=== PATIENT | female | born 1955 | race Caucasian/White ===

== ENCOUNTER 2016-09-02 16:37 | Observation (INO) ==
[2016-09-02] MEDS ORDERED: Nitroglycerin 0.4 MG TAB.SUBL SL ONE (16:52)
[2016-09-02] MEDS ORDERED: Aspirin 81 MG TAB.CHEW PO ONE (16:52)
--- NOTE | 2016-09-02 16:54 | Emergency Department Note ---
Disposition Clinical Impression: Atypical chest pain Disposition: Admitted As Inpatient Condition: Fair Referrals: Maureen Mathias MD [Primary Care Provider] - Forms: ED Satisfaction Letter Chest Pain HPI - General Chief Complaint: ED Chest Pain Stated Complaint: Chest pain Time Seen by Provider: 09/02/16 16:39 Source: patient Limitations: no limitations Vital Signs Reviewed: Yes Nursing Notes Reviewed: Yes - History of Present Illness Severity scale (1-10): 6 - Related Data Home Medications Medication Instructions Recorded Confirmed Aspirin Enteric Coated [Aspirin EC] 81 mg PO DAILY 04/07/15 09/02/16 Atenolol [Tenormin] 25 mg PO DAILY 04/07/15 09/02/16 Atorvastatin [Lipitor] 40 mg PO HS 04/07/15 09/02/16 Amlodipine Besylate [Amlodipine 10 mg PO DAILY 09/02/16 09/02/16 Besylate] Isosorbide MONOnitrate (24 HR) 60 mg PO DAILY 09/02/16 09/02/16 [Imdur] Losartan Potassium [Losartan 100 mg PO DAILY 09/02/16 09/02/16 Potassium] Ropinirole HCl [Ropinirole HCl] 0.25 mg PO DAILY PRN 09/02/16 09/02/16 SUMAtriptan Succinate [Imitrex] 100 mg PO DAILY PRN 09/02/16 09/02/16 Spironolactone [Aldactone] 50 mg PO DAILY 09/02/16 09/02/16 Allergies Allergy/AdvReac Type Severity Reaction Status Date / Time Sulfa (Sulfonamide Allergy Hives Verified 04/07/15 08:29 Antibiotics) Chest Pain PMH - Past Medical History Medical history: Reports: cancer, hypertension Surgical history: Reports: non-contributory Psychiatric history: Reports: no psych history 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 - Social History Smoking Status: Former smoker Alcohol use: Reports: none Drug use: Reports: none Physical Exam - General Limitations: no limitations General appearance: alert Course Vital Signs Temperature 97.5 F L 09/02/16 16:41 Pulse Rate 69 09/02/16 16:41 Respiratory Rate 16 09/02/16 16:41 Blood Pressure 156/92 09/02/16 16:41 O2 Sat by Pulse Oximetry 97 09/02/16 16:41 Temperature 97.5 F L 09/02/16 16:41 Pulse Rate 63 09/02/16 18:23 Respiratory Rate 14 09/02/16 18:23 Blood Pressure 133/77 09/02/16 18:23 O2 Sat by Pulse Oximetry 94 L 09/02/16 18:23 Oxygen Delivery Oxygen Delivery Room Air Chest Pain - MDM Narrative Medical decision making narrative: I examined this patient and my medical decision-making was reviewed with the COLLEGE DEAN/PA/Advanced Practice Nurse/Resident Physician. I agree with the documented findings, disposition and treatment plan as described except to the extent set forth below. Patient presents with intermittent chest pain going on for 24 hours. 2 years ago she had a catheterization which showed a 40% narrowing. She did not receive a stent. Is taking aspirin. Her cardiac risk factors are low to moderate. He rendered a cardiac workup on her she will most likely need admission. She is in agreement with this plan. I evaluated this patient Dr. Ma, I agree with his evaluation and management, supervised the care of the patient outstay. Chest X-Ray 09/02/16 16:45 IMPRESSION: No acute cardiopulmonary process. D/ / 09/02/2016 17:14:04 Lee Lorenzana MD / Rosa Gutierrez Interpreting Provider: Lee Lorenzana MD 1800 hrs.: Patient's workup is essentially negative here. With her history I think she needs to come in for a full cardiac workup. We will go ahead and bring her into the hospital. Paging the hospitalist. - Lab Data Result diagrams: 09/02/16 17:02 09/02/16 17:02 Lab Results 09/02/16 09/02/16 09/02/16 Range/Units 17:02 17:02 17:02 WBC 10.8 (4.3-11.1) K/mcL RBC 4.53 (3.82-4.97) M/mcL Hgb 13.4 (11.5-15.4) g/dL Hct 39.3 (35.3-44.9) % MCV 86.8 (83.0-100.0) fL MCH 29.6 (28.0-33.3) pg MCHC 34.1 (31.6-35.5) g/dL RDW 12.5 (11.5-14.5) % Plt Count 292 (140-400) K/mcL MPV 9.4 (9.4-12.4) fL Immature Gran % 0.5 (0-4) % Seg Neutrophils % 59.1 % Lymphocytes % 31.5 % Monocytes % 6.5 % Eosinophils % 1.9 % Basophils % 0.5 % Neutrophils # 6.4 (1.6-8.9) K/mcL Lymphocytes # 3.4 (0.6-4.6) K/mcL Monocytes # 0.7 (0.0-1.3) K/mcL Eosinophils # 0.2 (0.0-0.6) K/mcL Basophils # 0.1 (0.0-0.2) K/mcL PT 12.3 H (9.4-12.1) Seconds INR 1.1 APTT 34.5 (26.0-36.0) Seconds Sodium 141 (136-145) mEq/L Potassium 3.5 (3.5-4.5) mEq/L Chloride 109 (98-109) mEq/L Carbon Dioxide 20 (19-29) mEq/L BUN 14 (7-20) mg/dL Creatinine 0.97 (0.57-1.11) mg/dL Est GFR ( Amer) > 60 (> 60) Est GFR (Non-Af Amer) 58 L (> 60) BUN/Creatinine Ratio 14 (6-26) Glucose 101 H (70-99) mg/dL Calculated Osmolality 293 (280-300) Calcium 9.8 (8.6-10.8) mg/dL Troponin I (0-0.03) ng/mL 09/02/16 Range/Units 17:02 WBC (4.3-11.1) K/mcL RBC (3.82-4.97) M/mcL Hgb (11.5-15.4) g/dL Hct (35.3-44.9) % MCV (83.0-100.0) fL MCH (28.0-33.3) pg MCHC (31.6-35.5) g/dL RDW (11.5-14.5) % Plt Count (140-400) K/mcL MPV (9.4-12.4) fL Immature Gran % (0-4) % Seg Neutrophils % % Lymphocytes % % Monocytes % % Eosinophils % % Basophils % % Neutrophils # (1.6-8.9) K/mcL Lymphocytes # (0.6-4.6) K/mcL Monocytes # (0.0-1.3) K/mcL Eosinophils # (0.0-0.6) K/mcL Basophils # (0.0-0.2) K/mcL PT (9.4-12.1) Seconds INR APTT (26.0-36.0) Seconds Sodium (136-145) mEq/L Potassium (3.5-4.5) mEq/L Chloride (98-109) mEq/L Carbon Dioxide (19-29) mEq/L BUN (7-20) mg/dL Creatinine (0.57-1.11) mg/dL Est GFR ( Amer) (> 60) Est GFR (Non-Af Amer) (> 60) BUN/Creatinine Ratio (6-26) Glucose (70-99) mg/dL Calculated Osmolality (280-300) Calcium (8.6-10.8) mg/dL Troponin I 0.00 (0-0.03) ng/mL
--- NOTE | 2016-09-02 16:56 | Emergency Department Note ---
Disposition Clinical Impression: Atypical chest pain Chest pain Qualifiers: Chest pain type: unspecified Qualified Code(s): R07.9 - Chest pain, unspecified Disposition: Admitted As Inpatient Condition: Good Forms: ED Satisfaction Letter Time of Disposition: 18:38 Chest Pain HPI - General Chief Complaint: ED Chest Pain Stated Complaint: Chest pain Time Seen by Provider: 09/02/16 16:39 Source: patient Mode of arrival: ambulatory Limitations: no limitations Vital Signs Reviewed: Yes Nursing Notes Reviewed: Yes - History of Present Illness HPI Narrative: Patient presents emergency room with approximately 7 days with the chest pressure and pain. Symptoms are substernal in nature. She has had these one time in the past approximately 2 years ago when she was evaluated this facility admitted and had cardiac catheterization. She denies these being identical symptoms at this time. She has been following up appropriately with her paper ruler. She is concerned today because his symptoms have not gone away over the last week. She usually will have these symptoms very intermittently and they resolved completely. Patient otherwise denies shortness of breath headache vision changes nausea vomiting or diarrhea. Main complaint on presentation here today as exertional chest pressure and pain. 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 Duration: constant Onset: during rest Pain Location: substernal Severity: moderate Severity scale (1-10): 6 Quality: tightness Improves with: nothing Worsens with: exertion Treatments prior to arrival chest pain: aspirin - Related Data Home Medications Medication Instructions Recorded Confirmed Aspirin Enteric Coated [Aspirin EC] 81 mg PO DAILY 04/07/15 04/07/15 Atenolol [Tenormin] 25 mg PO DAILY 04/07/15 04/07/15 Atorvastatin [Lipitor] 40 mg PO HS 04/07/15 04/07/15 Zolpidem [Ambien] 5 mg PO HS 04/07/15 04/07/15 Previous Rx's Medication Instructions Recorded Isosorbide MONOnitrate (24 HR) 60 mg PO DAILY #30 tab.er.24h 04/07/15 [Imdur] Cephalexin [Keflex] 500 mg PO QID #40 capsule 04/09/15 Clindamycin [Cleocin] 300 mg PO Q8HR #21 capsule 04/09/15 Hydrocodone/Acetaminophen [[place] 1 tab PO QID PRN #14 tab 04/09/15 5-325 Tablet] Allergies Allergy/AdvReac Type Severity Reaction Status Date / Time Sulfa (Sulfonamide Allergy Hives Verified 04/07/15 08:29 Antibiotics) All systems ED: reviewed and negative except as stated. Constitutional: Denies: fever, chills Cardiovascular: Reports: chest pain. 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 Absent: respiratory distress, wheezes, stridor - Cardiovascular Cardiovascular exam: Present: regular rate, normal rhythm, normal heart sounds - Abdominal Exam Abdominal exam: Present: soft, Non-Tender. Absent: tenderness, distention, guarding, rebound, rigidity, mass, pulsatile mass - Extremities Exam Extremities exam: Present: normal inspection, full ROM, pedal edema - Back Exam Back exam: Present: normal inspection, full ROM. Absent: tenderness - Neurological Exam Neurological exam: Present: alert, oriented X3, CN II-XII intact, normal gait - Psychiatric Psychiatric exam: Present: normal affect, normal mood - Skin Skin exam: Present: warm, dry, intact, normal color Course Course Narrative: Patient seen and examined the time of arrival. See history of present illness. 61-year-old female presents emergency room with approximate 7 days with a substernal chest pain. Symptoms get worse when she exerts herself. She has had these symptoms on and off over the last year. She had seen her paper ruler approximately 3 months ago and it noted that with them at that time. They were continuing to manage her medically that point. She has not had a stress test or echo performed in over 2 years. Patient does know that she has a 40% blockage in one of her vessels but did not require understanding during that last catheterization. Patient denies any trauma or injuries at this time. She denies any shortness of breath headache vision changes nausea vomiting or diarrhea. Only complaint on presentation here his chest pain and exertional chest pain. Vital signs on initial triage of hypertension but otherwise are normal. She is afebrile. Physical exam well-appearing female who does appear to be slightly anxious about being here in the emergency room. Her neurologic evaluation is negative at this time. Her lungs are clear heart is regular abdomen is soft no pulsatile masses or hernias. She has no peripheral edema. She has good palpable radial DP and PT pulses. Patient based on symptom history presentation is concerning for cardiac clearance 2 issues. This is not identical to her previous cardiac presentation but it does appear to be related to exertion or physical activity. Patient had EKG chest x- ray labs including troponin drawn at this time. Patient and I discussed in detail the bedside of this was most likely going to require her to be admitted to have further evaluation by the cardiology team. She understands that at this time is comfortable with the plan. Patient stable resting comfortably in the bed workup and disposition to be completed. Aspirin and nitroglycerin trial to be started this time per patient's blood pressure should tolerate without any difficulty - Reevaluation(s) Reevaluation #1: Patient has moderate cardiac risk based on heart score being for this time. She has known coronary artery disease never needing stenting. EKG shows sinus rhythm normal morphology intervals are all within normal limits. It describes ST segment depression based on my evaluation is less than 0.5 mm of depression throughout multiple leads on EKG. No reciprocal changes or signs of acute STEMI aspirin and nitroglycerin tablets start now Time: 17:04 Reevaluation #2: Troponin is negative. Rest the patient's lab workup is negative at this time. Chest x-ray stable with no signs of infiltrate or effusion. Patient did not have relief of symptoms with nitroglycerin trial. Aspirin given at this time. Patient has symptoms that are consistent with atypical chest pain. This does not appear to be an anginal-like events. She will be brought in the hospital this time for acute coronary syndrome evaluation secondary to her exertional symptoms and previous history of coronary disease. Conversation was had with the hospitalist Dr. hermosillo. We reviewed the presentation symptoms and medical intervention performed in emergency room. No other recommendations at this time. I do not feel the patient needs a heparin drip at this time secondary to this being most likely atypical chest pain and not an acute coronary syndrome. Patient was informed of our plan and the negative workup and she is comfortable being admitted this time for further evaluation and definitive management. Vital signs been stable throughout the course of care she is in no distress resting comfortably in the bed Time: 18:38 Vital Signs Temperature 97.5 F L 09/02/16 16:41 Pulse Rate 69 09/02/16 16:41 Respiratory Rate 16 09/02/16 16:41 Blood Pressure 156/92 09/02/16 16:41 O2 Sat by Pulse Oximetry 97 09/02/16 16:41 Temperature 97.5 F L 09/02/16 16:41 Pulse Rate 69 09/02/16 16:41 Respiratory Rate 16 09/02/16 16:41 Blood Pressure 156/92 09/02/16 16:41 O2 Sat by Pulse Oximetry 97 09/02/16 16:41 Oxygen Delivery Oxygen Delivery Room Air Chest Pain - MDM Narrative Medical decision making narrative: Chest pain, rule out acute coronary syndrome - Medical Records Medical records reviewed: Yes I reviewed the patient's medical records. - Lab Data Lab results reviewed: Yes I reviewed the patient's lab results. - Radiology Data Radiology results reviewed: Yes I reviewed the patient's radiology results. Chest x-ray is negative for acute pathology reviewed by myself and confirmed by radiology - EKG Data EKG attestation: Yes I reviewed and interpreted this EKG. EKG shows normal: sinus rhythm, axis, intervals, QRS complexes, ST-T waves Rate: normal Rhythm: NSR Adams/QRS: normal When compared to previous EKG there are: no significant changes Interpretation: no acute changes, unchanged when compared to prior tracing (date ) (Patient has no acute changes from previous EKG performed on 02/23/15. Intervals are all within normal limits. EKG does note possible ST segment depression but it appears to be diffuse in nature no acute morphology noted at this point) Heart Score - Score History: Moderately Suspicious EKG: Non Specific repolarisation Disturbance Age: 45-65 Risk Factors: 1-2 risk factors Troponin: Less than normal limit HEART Score Total: 4
[2016-09-02 17:08] LABS: Basophils # 0.1 K/mcL (0.0-0.2); Basophils % 0.5 %; Eosinophils # 0.2 K/mcL (0.0-0.6); Eosinophils % 1.9 %; Hematocrit 39.3 % (35.3-44.9); Hemoglobin 13.4 g/dL (11.5-15.4); Immature Granulocytes % 0.5 % (0-4); Lymphocytes # 3.4 K/mcL (0.6-4.6); Lymphocytes % 31.5 %; Mean Corpuscular HGB Conc 34.1 g/dL (31.6-35.5); Mean Corpuscular Hemoglobin 29.6 pg (28.0-33.3); Mean Corpuscular Volume 86.8 fL (83.0-100.0); Mean Platelet Volume 9.4 fL (9.4-12.4); Monocytes # 0.7 K/mcL (0.0-1.3); Monocytes % 6.5 %; Neutrophils # 6.4 K/mcL (1.6-8.9); Platelet Count 292 K/mcL (140-400); Red Blood Count 4.53 M/mcL (3.82-4.97); Red Cell Distribution Width 12.5 % (11.5-14.5); Segmented Neutrophils % 59.1 %
[2016-09-02 17:13] LABS: INR 1.1; Prothrombin Time 12.3 Seconds (9.4-12.1)
[2016-09-02 17:16] LABS: Activated Partial Thrombo Time 34.5 Seconds (26.0-36.0)
[2016-09-02 17:22] LABS: BUN/Creatinine Ratio 14 (6-26); Blood Urea Nitrogen 14 mg/dL (7-20); Calcium 9.8 mg/dL (8.6-10.8); Carbon Dioxide 20 mEq/L (19-29); Chloride 109 mEq/L (98-109); Glucose 101 mg/dL (70-99); Osmolality,Calculated 293 (280-300); Potassium 3.5 mEq/L (3.5-4.5); Sodium 141 mEq/L (136-145); eGFR For African Americans > 60 (> 60); eGFR For Non-African Americans 58 (> 60)
[2016-09-02] MEDS ORDERED: Ondansetron 4 MG/2 ML VIAL IVP PRN (19:34)
[2016-09-02] MEDS ORDERED: Acetaminophen 325 MG TABLET PO PRN (19:34)
[2016-09-02] MEDS ORDERED: Naloxone 0.4 MG/ML INJ IVP PRN (19:34)
[2016-09-02] MEDS ORDERED: *HR* Morphine 2 MG/ML SYRINGE IVP PRN (19:34)
[2016-09-02] MEDS ORDERED: *HR* HYDROcodone/Acet 5/325 mg TABLET PO PRN (19:34)
--- NOTE | 2016-09-02 19:43 | Internal Med History&Physical ---
<Alix Guajardo - Last Filed: 09/02/16 21:15> Date of Encounter: 09/02/16 Time of Encounter: 19:43 Assessment and Plan (1) Chest pain Current visit: Yes Status: Acute 1 first cardiac troponin is negative we will continue cycle troponins. We will continue with aspirin, atenolol, statin and nitroglycerin as needed oxygen 2 continuous cardiac monitoring 3 we will obtain cardiac echo 4 patient nothing by mouth and consult cardiology (2) HTN (hypertension) Current visit: Yes Status: Acute 1 presently controlled we will continue with atenolol Qualifiers: Hypertension type: essential hypertension Qualified Code(s): I10 - Essential (primary) hypertension (3) DVT prophylaxis Current visit: Yes Status: Acute 1 encourage patient to ambulate Internal Medicine - H&P: HPI Chief complaint: Chest pain Admitted From: Home Plans for Post Hospital Care: Home History of present illness: Ms. Shepherd is a 61 year old female with past medical history of coronary artery disease kidney cancer with right nephrectomy hypertension CHF. According the patient she has been experiencing midsternal dull chest pressure which is nonradiating without associated nausea. The pain is aggravated with exertion relieved with rest. She has had these symptoms off and on for over a year. 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 She had a cardiac catheter 2 years ago which did reveal moderate atherosclerotic coronary disease 40% stenosis in proximal LAD 30 % stenosis in mid circumflex and 50% stenosis in the mid RCA which is medically managed. The patient denies any shortness of breath diaphoresis lightheadedness She presented to the ER with the above complaints. Upon arrival to the patient was given nitroglycerin which did relieve her pain cardiac enzymes were obtained first troponin was negative, chest x-ray no acute process EKG with sinus rhythm with some mild wide spread ST depression she was given aspirin and nitroglycerin for chest pain which did not relieve her pain. She has been admitted for further work up evaluation. Presently patient is chest pain-free she denies any shortness of breath she is hemodynamically stable. I reviewed this case with Dr Peña who agrees with plan . Past Med Surg Social Fam HX - Past Medical History Medical history: cancer, hypertension Psychiatric history: no psych history - Past Surgical History Surgical History: non-contributory - Social History Smoking Status: Former smoker Smokeless Tobacco Status: No Alcohol use: none Drug use: none Internal Medicine - H&P: Meds Aspirin Enteric Coated [Aspirin EC] 81 mg PO DAILY 04/07/15 [History] Atenolol [Tenormin] 25 mg PO DAILY 04/07/15 [History] Atorvastatin [Lipitor] 40 mg PO HS 04/07/15 [History] Amlodipine Besylate [Amlodipine Besylate] 10 mg PO DAILY 09/02/16 [History] Isosorbide MONOnitrate (24 HR) [Imdur] 60 mg PO DAILY 09/02/16 [History] Losartan Potassium [Losartan Potassium] 100 mg PO DAILY 09/02/16 [History] Ropinirole HCl [Ropinirole HCl] 0.25 mg PO DAILY PRN 09/02/16 [History] SUMAtriptan Succinate [Imitrex] 100 mg PO DAILY PRN 09/02/16 [History] Spironolactone [Aldactone] 50 mg PO DAILY 09/02/16 [History] Allergies Sulfa (Sulfonamide Antibiotics) Allergy (Verified 04/07/15 08:29) Hives All Systems PM: A 10-system review of systems was performed and is negative for pertinent findings except as documented above in the HPI. - Constitutional Constitutional: no chills, no fever(s), no night sweats - Cardiovascular Cardiovascular ROS IM: chest pain - Respiratory Respiratory: no cough, no dyspnea, no wheezing, no excessive phlegm production - Gastrointestinal Gastrointestinal: no abdominal pain, no diarrhea, no hematemesis, no hematochezia, no melena, no nausea, no vomiting - Genitourinary Genitourinary: no change in urinary stream, no dysuria, no flank pain, no hematuria - Musculoskeletal Musculoskeletal ROS IM: no numbness, no tingling - Integumentary Integumentary IM: no rash, no unusual bruising - Neurological Neurological ROS: no confusion, no convulsions, no focal weakness, no numbness, no tingling, no tremor(s) - Hematologic/Lymphatic Hematologic/Lymphatic: no easy bruising - Constitutional Vitals: Temp Pulse Resp BP Pulse Ox 97.5 F L 63 16 139/79 94 L 09/02/16 16:41 09/02/16 18:23 09/02/16 18:54 09/02/16 18:54 09/02/16 18:23 General appearance: Present: A&O X 3, answers questions appropriately - Head Head exam: Present: atraumatic, normocephalic - Eye Eye exam: Present: PERRL, conjuntiva pink, sclera anicteric Pupils: Present: PERRL - Neck Neck exam general surgery: Present: supple, trachea midline. Absent: lymphadenopathy - Respiratory Respiratory exam: Present: CTAB. Absent: accessory muscle use, rales, rhonchi, wheezes - Cardiovascular Cardiovascular exam: Present: RRR, +S1, +S2. Absent: diastolic murmur, gallop, rubs, systolic murmur - GI/Abdominal GI/Abdominal exam: Present: normal bowel sounds, soft, no peritoneal signs. Absent: distended, tenderness - Extremities Exam Extremities exam: Present: warm, radial pulses palpable and symetrical. Absent : calf tenderness, cyanotic, pedal edema - Neurological Exam Neurological exam: Present: CN II-XII intact, oriented X3, no focal deficits. Absent: pronater drift, facial droop, speech deficit - Skin Skin exam: Present: dry, intact Internal Med - H&P Results - Labs CBC & Chem 7: 09/02/16 17:02 09/02/16 17:02 - EKG Data EKG shows normal: sinus rhythm Rate: normal - Diagnostic Studies Chest x-ray Additional comments: per radiology no acute changes - VTE Reasons for not Prescribing Prophylaxis: Treatment not Indicated - Low risk for VTE <Ruth Peña - Last Filed: 09/02/16 23:15> Date of Encounter: 09/02/16 Internal Medicine - H&P: HPI History of present illness: Ms. Shepherd is a 61 year old female All Systems PM: A 10-system review of systems was performed and is negative for pertinent findings except as documented above in the HPI. - Constitutional Vitals: Temp Pulse Resp BP Pulse Ox 97.8 F 62 18 131/78 93 L 09/02/16 20:21 09/02/16 20:21 09/02/16 20:21 09/02/16 20:21 09/02/16 20:21 Internal Med - H&P Results - Labs CBC & Chem 7: 09/02/16 17:02 09/02/16 17:02 Labs: Cardiac Enzymes 09/02/16 Range/Units 22:19 Troponin I 0.00 (0-0.03) ng/mL - Attending Attestation I examined this patient and my medical decision-making was reviewed with the MORTICIAN HELPER/PA/Advanced Practice Nurse/Resident Physician. I agree with the documented findings, disposition and treatment plan as described except to the extent set forth below. I have personally evaluated the pt and discussed the details with DATA ACQUISITION TECHNICIAN. H/O CAD and prior cardiac cath. presents with CP - Troponin negative. stress test versus cardiac cath. cardiology consult.
[2016-09-02] MEDS ORDERED: Nitroglycerin 0.4 MG TAB.SUBL SL PRN (19:45)
[2016-09-03 04:53] LABS: Basophils # 0.1 K/mcL (0.0-0.2); Basophils % 0.6 %; Eosinophils # 0.2 K/mcL (0.0-0.6); Eosinophils % 2.6 %; Hematocrit 39.9 % (35.3-44.9); Hemoglobin 13.7 g/dL (11.5-15.4); Immature Granulocytes % 0.2 % (0-4); Lymphocytes # 3.3 K/mcL (0.6-4.6); Lymphocytes % 37.6 %; Mean Corpuscular HGB Conc 34.3 g/dL (31.6-35.5); Mean Corpuscular Volume 87.5 fL (83.0-100.0); Mean Platelet Volume 9.7 fL (9.4-12.4); Monocytes # 0.8 K/mcL (0.0-1.3); Monocytes % 8.7 %; Neutrophils # 4.5 K/mcL (1.6-8.9); Platelet Count 276 K/mcL (140-400); Red Blood Count 4.56 M/mcL (3.82-4.97); Red Cell Distribution Width 12.5 % (11.5-14.5); Segmented Neutrophils % 50.3 %
[2016-09-03 05:11] LABS: BUN/Creatinine Ratio 17 (6-26); Blood Urea Nitrogen 14 mg/dL (7-20); Calcium 9.4 mg/dL (8.6-10.8); Carbon Dioxide 20 mEq/L (19-29); Chloride 110 mEq/L (98-109); Chol/HDL Ratio 3.9 (0-4.9); Cholesterol 143 mg/dL (< 200); Glucose 94 mg/dL (70-99); HDL Cholesterol 37 mg/dL (40-59); LDL Cholesterol,Calculated 78 mg/dL (0-99); Osmolality,Calculated 292 (280-300); Potassium 3.5 mEq/L (3.5-4.5); Sodium 141 mEq/L (136-145); Triglycerides 139 mg/dL (< 150); eGFR For African Americans > 60 (> 60); eGFR For Non-African Americans > 60 (> 60)
[2016-09-03] MEDS ORDERED: Aspirin Enteric Coated 81 MG Tablet PO SCH (09:00)
[2016-09-03] MEDS ORDERED: Isosorbide MONOnitrate (24 HR) 60 MG TAB.ER.24H PO SCH ×2 (09:00→12:33)
[2016-09-03] MEDS ORDERED: amLODIPine 5 MG TABLET PO SCH (09:00)
--- NOTE | 2016-09-03 09:15 | Cardiology Consult Note ---
Date of Encounter: 09/03/16 Time of Encounter: 09:15 Assessment and Plan (1) Chest pain Current Visit: Yes Status: Acute Known moderate CAD on [facility] 03/2015. 40% prox LAD, 50% distal LAD (tortuous), 30% mid circ, 50% 1st marginal, 50% mid RCA. Echo 11/2015 EF 60%. Current symptoms concerning for worsening coronary disease. Chest pain for the past week--reports nearly constant, but waxing and waning in intensity. Reports midsternal pain worse on exertion, relieved with rest and with nitro in ED yesterday. Troponins negative x 2. Nonspecific EKG changes noted. Order low level stress test for further ischemic evaluation. Further recommendations following stress test results. Qualifiers: Chest pain type: unspecified Qualified Code(s): R07.9 - Chest pain, unspecified (2) CAD (coronary artery disease) Current Visit: Yes Status: Acute Continue ASA, Statin, BB, nitrates. Qualifiers: Coronary Disease-Associated Artery/Lesion type: [place] artery [place] vs. transplanted heart: [place] heart Associated angina: with stable angina Qualified Code(s): I25.118 - Atherosclerotic heart disease of [place] coronary artery with other forms of angina pectoris (3) HTN (hypertension) Current Visit: Yes Status: Acute Controlled on current meds. Qualifiers: Hypertension type: essential hypertension Qualified Code(s): I10 - Essential (primary) hypertension Discussion w patient/family: The assessment and plan as outlined above was discussed with the patient and/or family members who expressed understanding and agreement. All questions were answered. Thank you for involving us in the care of your patient. Please call with any questions. I will discuss all the above with Dr. Winslow and make changes as necessary. History of Present Illness Consult date: 09/03/16 Requesting physician: Ruth Peña Consult reason: Chest pain Chief complaint: Chest pain History of present illness: Ms. Shepherd is a 61 year old female with PMH of moderate CAD on [facility] in 03/2015, renal cancer s/p nephrectomy, hypertension CHF. According the patient she has been experiencing midsternal dull chest pressure which is nonradiating for the past week,worsened with exertion, relieved with rest. [facility] in 2014 revealed moderate atherosclerotic coronary disease 40% stenosis in proximal LAD 30% stenosis in mid circumflex and 50% stenosis in the mid RCA. Echo 11/2015 EF 60%, mild LVDD, mild MR. Pt reports chest pain yesterday was relieved with nitro in ED, recurred when she ambulated to bathroom. Past Med Surg Social Fam HX - Past Medical History Medical history: cancer, coronary artery disease, hypertension Psychiatric history: no psych history - Past Surgical History Surgical History: non-contributory - Social History Smoking Status: Former smoker Smokeless Tobacco Status: No Alcohol use: none Drug use: none Medications and Allergies Aspirin Enteric Coated [Aspirin EC] 81 mg PO DAILY 04/07/15 [History] Atenolol [Tenormin] 25 mg PO DAILY 04/07/15 [History] Atorvastatin [Lipitor] 40 mg PO HS 04/07/15 [History] Amlodipine Besylate [Amlodipine Besylate] 10 mg PO DAILY 09/02/16 [History] Isosorbide MONOnitrate (24 HR) [Imdur] 60 mg PO DAILY 09/02/16 [History] Losartan Potassium [Losartan Potassium] 100 mg PO DAILY 09/02/16 [History] Ropinirole HCl [Ropinirole HCl] 0.25 mg PO DAILY PRN 09/02/16 [History] SUMAtriptan Succinate [Imitrex] 100 mg PO DAILY PRN 09/02/16 [History] Spironolactone [Aldactone] 50 mg PO DAILY 09/02/16 [History] Allergies Sulfa (Sulfonamide Antibiotics) Allergy (Verified 04/07/15 08:29) Hives All Systems Review: A 10-system review of systems was performed and is negative for pertinent findings except as documented above in the HPI. - Cardiovascular Cardiovascular: as per HPI, chest pain at rest, chest pain with exertion - Gastrointestinal Gastrointestinal: nausea Physical Examination Vital Signs, Last 4 Hours Temp Pulse Resp BP Pulse Ox 09/03/16 07:00 97.5 F L 56 16 121/78 95 Vital Signs Temp Pulse Resp BP Pulse Ox 09/03/16 07:00 97.5 F L 56 16 121/78 95 09/03/16 04:07 97.9 F 57 14 124/75 96 09/02/16 23:21 97.9 F 60 14 120/80 93 L 09/02/16 20:21 97.8 F 62 18 131/78 93 L 09/02/16 18:54 16 139/79 09/02/16 18:23 63 14 133/77 94 L 09/02/16 18:03 73 16 133/77 95 09/02/16 16:41 97.5 F L 69 16 156/92 97 Intake and Output 09/02/16 09/03/16 09/03/16 23:59 07:59 15:59 Other: Meal NPO Weight 49.13 kg 49.26 kg Patient Weight 09/03/16 23:59 Weight 49.26 kg General: Conversant, No Apparent Distress HEENT: Atraumatic, Normocephaly, Mucus Membranes Moist Neck: No JVD, Normal carotid pulses Cardiac: Reg Rate and Rhythm, Normal S1 and S2, No Murmur Lungs: Normal Breath Sounds, No Wheeze, Rales, Rhonchi Neuro: Alert and responsive, No focal deficits noted Abdomen: Soft, Non-Tender Skin: No rashes noted on visualized skin Musculoskeletal: No Chest Wall Tenderness Extremities: No Clubbing, No Cyanosis, No Edema, Normal Pulses Results 09/03/16 04:25 09/03/16 04:25 Lab Results 09/02/16 09/03/16 09/03/16 22:19 04:25 04:25 WBC 8.9 Hgb 13.7 Hct 39.9 Plt Count 276 Sodium 141 Potassium 3.5 Chloride 110 H Carbon Dioxide 20 BUN 14 Creatinine 0.82 Glucose 94 Calcium 9.4 Troponin I 0.00 09/03/16 04:25 WBC Hgb Hct Plt Count Sodium Potassium Chloride Carbon Dioxide BUN Creatinine Glucose Calcium Troponin I 0.00 Short CBC 09/03/16 09/02/16 Range/Units 04:25 17:02 WBC 8.9 10.8 (4.3-11.1) K/mcL Hgb 13.7 13.4 (11.5-15.4) g/dL Hct 39.9 39.3 (35.3-44.9) % Plt Count 276 292 (140-400) K/mcL Neutrophils # 4.5 6.4 (1.6-8.9) K/mcL BMP 09/03/16 09/02/16 Range/Units 04:25 17:02 Sodium 141 141 (136-145) mEq/L Potassium 3.5 3.5 (3.5-4.5) mEq/L Chloride 110 H 109 (98-109) mEq/L Carbon Dioxide 20 20 (19-29) mEq/L BUN 14 14 (7-20) mg/dL Creatinine 0.82 0.97 (0.57-1.11) mg/dL Glucose 94 101 H (70-99) mg/dL Calcium 9.4 9.8 (8.6-10.8) mg/dL Cardiac Enzymes 09/03/16 09/02/16 09/02/16 Range/Units 04:25 22:19 17:02 Troponin I 0.00 0.00 0.00 (0-0.03) ng/mL Impressions Chest X-Ray 09/02/16 16:45 IMPRESSION: No acute cardiopulmonary process. D/ / 09/02/2016 17:14:04 Lee Lorenzana MD / Rosa Gutierrez Interpreting Provider: Lee Lorenzana MD Active Medications Acetaminophen (Tylenol) 650 mg PO Q6HR PRN PRN Reason: Mild Pain (1-3) Stop: 03/04/17 19:35 Acetaminophen/Hydrocodone Bitart ([place] 5-325 Mg) 1 tab PO Q4HR PRN PRN Reason: Moderate Pain (4-6) Stop: 03/04/17 19:35 Amlodipine Besylate (Norvasc) 10 mg PO DAILY [facility] Stop: 03/05/17 09:01 Aspirin (Aspirin Ec) 81 mg PO DAILY [facility] Stop: 03/05/17 09:01 Atenolol (Tenormin) 25 mg PO DAILY [facility] Stop: 03/05/17 09:01 Atorvastatin Calcium (Lipitor) 40 mg PO DAILY [facility] Stop: 03/04/17 21:01 Isosorbide Mononitrate (Imdur) 60 mg PO DAILY [facility] Stop: 03/05/17 09:01 Losartan Potassium (Cozaar) 100 mg PO DAILY [facility] Stop: 03/05/17 09:01 Morphine Sulfate (Morphine Sulfate) 2 mg IVP Q4HR PRN PRN Reason: Severe Pain (7-10) Stop: 03/04/17 19:35 Naloxone HCl (Narcan) 0.4 mg IVP Q2MIN PRN PRN Reason: Opioid Reversal Stop: 03/04/17 19:35 Nitroglycerin (Nitroglycerin) 0.4 mg SL Q5MIN PRN PRN Reason: Chest Pain Stop: 03/04/17 19:46 Ondansetron HCl (Zofran) 4 mg IVP Q8HR PRN PRN Reason: Nausea And Vomiting Stop: 03/04/17 19:35 Spironolactone (Aldactone) 50 mg PO DAILY [facility] Stop: 03/05/17 09:01 Active Medications Acetaminophen (Tylenol) 650 mg PO Q6HR PRN PRN Reason: Mild Pain (1-3) Stop: 03/04/17 19:35 Acetaminophen/Hydrocodone Bitart ([place] 5-325 Mg) 1 tab PO Q4HR PRN PRN Reason: Moderate Pain (4-6) Stop: 03/04/17 19:35 Amlodipine Besylate (Norvasc) 10 mg PO DAILY [facility] Stop: 03/05/17 09:01 Aspirin (Aspirin Ec) 81 mg PO DAILY [facility] Stop: 03/05/17 09:01 Atenolol (Tenormin) 25 mg PO DAILY [facility] Stop: 03/05/17 09:01 Atorvastatin Calcium (Lipitor) 40 mg PO DAILY [facility] Stop: 03/04/17 21:01 Isosorbide Mononitrate (Imdur) 60 mg PO DAILY [facility] Stop: 03/05/17 09:01 Losartan Potassium (Cozaar) 100 mg PO DAILY [facility] Stop: 03/05/17 09:01 Morphine Sulfate (Morphine Sulfate) 2 mg IVP Q4HR PRN PRN Reason: Severe Pain (7-10) Stop: 03/04/17 19:35 Naloxone HCl (Narcan) 0.4 mg IVP Q2MIN PRN PRN Reason: Opioid Reversal Stop: 03/04/17 19:35 Nitroglycerin (Nitroglycerin) 0.4 mg SL Q5MIN PRN PRN Reason: Chest Pain Stop: 03/04/17 19:46 Ondansetron HCl (Zofran) 4 mg IVP Q8HR PRN PRN Reason: Nausea And Vomiting Stop: 03/04/17 19:35 Spironolactone (Aldactone) 50 mg PO DAILY [facility] Stop: 03/05/17 09:01 - Imaging and Cardiology Chest Xray: report reviewed Stress Test: report reviewed (02/2015--small sized, mild intensity reversible basal inferior defect suggestive of ischemia.) Echo: report reviewed (12/03/15--EF 60%, mild LVDD, mild MR.) Cardiac cath: report reviewed (03/2015--Moderate atherosclerotic CAD. EF 65%. 40 % proximal LAD, 50% distal LAD (tortuous), 30% mid circ, 50% 1st marginal, 50% mid RCA.) - EKG Interpretation EKG results cardiology: personally reviewed (SR, nonspecific ST changes), other (12 hour tele AVG HR 59, no significant pauses or arrhythmias.) Consult Discharge Plan - Plan Referrals: Maureen Mathias MD [Primary Care Provider] -
[2016-09-03] MEDS ORDERED: Regadenoson 0.4 MG/5 ML SYRINGE IVP ONE (10:48)
--- NOTE | 2016-09-03 12:30 | Nuclear Medicine Stress Report ---
Low Level Regadenoson Name: Sera Shepherd Date of Study: 09/03/2016 Date: 1955 Ht: 59.0 in Medical Record#: [id number] Age: 61 Wt: 108.0 lb Gender: Female Order #: [id number] Location: [facility] Room: [facility] Supervising Provider: Onesimo Miranda CNP Reading Physician: Wilton Rose DO, INA LEMONS FASNC Ordering Physician: Onesimo Miranda CNP Primary Care Physician: Maureen Mathias MD Stress Technologist: Frances Hendricks TALENT ACQUISITION ADMINISTRATOR, CCT Manager Nursing: August Castañeda Indications: Chest Pain Impression: Low level exercise/ pharmacologic stress ECG is negative for ischemia at level of heart rate achieved. Gated EF > 70%. Perfusion imaging was negative for ischemia or infarct. History: Hypertension Hypercholesteremia Stress Test Summary: Stress Test Type: Low level pharmacologic Regadenoson 0.4mg/5ml given IV Baseline Information: Initial Heart Rate: 56 Blood Pressure: 124/70 Stress Information: Stress Time: 4 min 00 sec Test Terminated Due to (primary): As per protocol Maximum Blood Pressure: 118/70 Maximum Heart Rate: 109 Percent Maximum Heart Rate Achieved: 69 Double Product: [id number] METS Reached: 2.1 Symptoms: Chest pain Nuclear Summary: SPECT myocardial perfusion imaging using Tc99m Sestamibi given intravenously was performed at rest and following cardiac stress testing. The resting images were obtained following initial dose of 10.2 mCi. Following stress an additional dose of 29.7 mCi was given at peak exercise or 30 seconds post regadenoson infusion. Medication Given: Time Medication Dose Units Route Findings: Stress Note * Resting ECG demonstrated normal sinus rhythm. * No baseline arrhythmias were noted. * Low level exercise/ pharmacologic stress ECG is negative for ischemia at level of heart rate achieved. * No chest pain or arrhythmias during stress. * Normal hemodynamic responses to low level exercise plus pharmacologic stress. Study Quality * Study quality is average. Gated EF > 70% * Gated EF > 70%. Left Ventricle * The left ventricle is not dilated. LVEDV = 44 mL. NORMALS * Normal wall motion. * Normal segmental perfusion in stress. * Normal Segmental Perfusion in rest. TID * No evidence of transient ischemic dilatation. * TID ratio = 0.96. Lung Uptake * There is no evidence of increase lung uptake. Updated by Wilton Rose DO, VESTA, MELIZA BUCKLEY on 09/03/2016 12:25:47 PM electronically signed on 09/03/2016 12:26:44 PM with status of Final
--- NOTE | 2016-09-03 14:45 | ECHO - Doppler Report ---
Echocardiogram Name: Sera Shepherd Date of Study: 09/03/2016 Date: 1955 Ht: 58.0 in Medical Record#: [id number] Age: 61 Wt: 108.0 lb Gender: Female BSA: 1.4 Order #: [id number] Location: [facility] Room #: [id number] Reading Physician: Wilton Rose DO, [facility] Sales & Service Associate: Clara Gray RVT, [facility] Ordering Physician: Alix Guajardo CNP Primary Physician: Maureen Mathias MD Indications: Chest pain Impressions: LVEF 60-65%. Normal LV chamber size, wall thickness and function. Mild left ventricular diastolic dysfunction. Normal right ventricular structure and function. No evidence of pulmonary hypertension. Mild tricuspid regurgitation. Left Ventricular Wall Motion: Rest Echo Findings All wall segments showed normal motion. Findings: Study Quality * Technically adequate exam. ECG Findings * Sinus bradycardia. Left Ventricle * LVEF 60-65%. * Normal LV chamber size, wall thickness and function. * Mild left ventricular diastolic dysfunction. Right Ventricle * Normal right ventricular structure and function. Left Atrium * Normal left atrial size. Right Atrium * Normal right atrial size. Interatrial Septum * No evidence of PFO by color Doppler. Aortic Valve * Trileaflet aortic valve. * Mildly sclerotic aortic valve leaflets. * No aortic regurgitation. * No aortic stenosis. Mitral Valve * Mildly thickened mitral valve leaflets. * No mitral regurgitation. * No mitral stenosis. Tricuspid Valve * Normal tricuspid valve structure and function. * Trace tricuspid regurgitation. * No evidence of pulmonary hypertension. Pulmonic Valve * Normal pulmonic valve structure and function. * Trace pulmonic regurgitation. Aorta * Normally sized aortic root. Pericardium * The pericardium appears normal. IVC * Normal IVC dimensions and inspiratory collapse. Pulmonary Artery * Normal visualized portions of the main pulmonary artery. History Hypertension Hypercholesteremia 12/03/2015 a Previous Echo was performed. Measurements: BP: 121/ 78 2D Normal Values RVIDd: 3.00 cm <2.7 cm IVSd: .90 cm 0.6 - 1.0 cm LVIDd: 4.50 cm 3.7 - 5.6 cm LVPWd: .90 cm 0.6 - 1.1 cm LVIDs: 2.50 cm 1.5 - 3.6 cm AO: 2.40 cm < 4.0 cm LA: 2.90 cm 2.0 - 4.0cm %FS: 44.40 cm >25 % LA volume: 26 Mitral Valve Peak E:.67 m/sec Peak A:.64 m/sec E/A Ratio:1 Peak E' Lat Peyman:7.21 cm/s Peak E' Med Peyman:6.14 cm/s E/E' Lat Ratio:9.2 E/E' Med Ratio:10.8 Tricuspid Valve TV Regurg Peak Grad: 27.00mmHg TV Regurg Peak Peyman: 2.59m/sec Updated by Wilton Rose DO, VESTA, INA, MELIZA on 09/03/2016 2:39:45 PM electronically signed on 09/03/2016 2:41:01 PM with status of Final Wall Motion [place]: 1=Normal, 2=Hypokinesis, 3=Akinesis, 4=Dyskinesis, 5=Aneurysmal, 6=Hyperkinetic, X=Not Visualized (Blank)=Missing
[2016-09-03 15:08] VITALS: BP 126/70
--- NOTE | 2016-09-03 16:18 | Electrocardiograph Report ---
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
--- NOTE | 2016-09-03 16:44 | Discharge Summary ---
Date of Encounter: 09/03/16 Time of Encounter: 13:35 - Discharge Diagnosis (1) Chest pain Priority: Primary Status: Acute Qualifiers: Chest pain type: unspecified Qualified Code(s): R07.9 - Chest pain, unspecified (2) CAD (coronary artery disease) Priority: Secondary Status: Chronic Qualifiers: Coronary Disease-Associated Artery/Lesion type: [place] artery [place] vs. transplanted heart: [place] heart Associated angina: with stable angina Qualified Code(s): I25.118 - Atherosclerotic heart disease of [place] coronary artery with other forms of angina pectoris (3) HTN (hypertension) Priority: Secondary Status: Chronic Qualifiers: Hypertension type: essential hypertension Qualified Code(s): I10 - Essential (primary) hypertension - Discharge Medications Home Medications: Aspirin Enteric Coated [Aspirin EC] 81 mg PO DAILY 04/07/15 [History] Atenolol [Tenormin] 25 mg PO DAILY 04/07/15 [History] Atorvastatin [Lipitor] 40 mg PO HS 04/07/15 [History] Amlodipine Besylate 10 mg PO DAILY 09/02/16 [History] Losartan Potassium 100 mg PO DAILY 09/02/16 [History] Ropinirole HCl 0.25 mg PO DAILY PRN 09/02/16 [History] SUMAtriptan Succinate [Imitrex] 100 mg PO DAILY PRN 09/02/16 [History] Spironolactone [Aldactone] 50 mg PO DAILY 09/02/16 [History] Isosorbide MONOnitrate (24 HR) [Imdur] 120 mg PO DAILY #60 09/03/16 [Rx] Allergies/Adverse Reactions: Allergies Sulfa (Sulfonamide Antibiotics) Allergy (Verified 04/07/15 08:29) Hives Procedures/tests Complete & Pending: Procedures Performed prior 72 hours Category Date Time Status NM diana perf SPECT multi [NM] Routine Exams 09/03/16 09:25 Taken EV echocardiogram Routine Y 09/03/16 19:46 Completed SP pharm nuclear stress Routine Y 09/03/16 09:23 Completed Date of admission: 09/02/16 18:45 Primary care physician: Maureen Mathias, Consults: 09/02/16 22:16 Consult to Cardiology [CONS] Routine Comment: Consulting Provider: [facility] Reason for Consult: Chest pain - CAD Time Notified: 22:16 Call Completed: No Discharging clinician: Yonny Galeano Anticipated date of discharge: 09/03/16 - Patient Status Disposition: Home, Self-Care Condition: Good Functional capacity at discharge: independent ambulation Overall status at discharge: patient is back to baseline - Discharge Instructions Follow Up With: Maureen Mathias MD [Primary Care Provider] - - Diet and Activity Activity: resume usual activities as tolerated Diet: low fat, low cholesterol, low salt diet Interval History: See below Hospital course: 61 Y/O F with PMH of moderate CAD on [facility] in 03/2015, renal cancer s/p nephrectomy , hypertension CHF. Patient was placed on observation for management of chest pain She is seen at bedside today after stress test She has been chest pain free since taking nitro at onset of symptoms Troponins negative x 2. Nonspecific EKG changes noted. Cardiology was consulted due to patients history of moderate CAD. Known moderate CAD on [facility] 03/2015. 40% prox LAD, 50% distal LAD (tortuous), 30% mid circ, 50% 1st marginal, 50% mid RCA. She has had a nuclear stress test that was negative for ischemia or infarction. Her Imdur has been increased to 120mg daily and other cardiac medications remained same dose She will be discharged home to follow up with PCP and Cardiology Plan of are discussed, verbalizes understanding - Time Spent with Patient Total time spent providing and/or coordinating discharge services: Less than 30 minutes - Constitutional Vitals: Temp Pulse Resp BP Pulse Ox 97.9 F 62 14 126/70 95 09/03/16 15:08 09/03/16 15:08 09/03/16 15:08 09/03/16 15:08 09/03/16 15:08 General appearance: Present: A&O X 3, answers questions appropriately - Head Head exam: Present: atraumatic, normocephalic - Eye Eye exam: Present: PERRL, conjuntiva pink, sclera anicteric Pupils: Present: PERRL - Neck Neck exam general surgery: Present: supple, trachea midline. Absent: lymphadenopathy - Respiratory Respiratory exam: Present: CTAB. Absent: accessory muscle use, rales, rhonchi, wheezes - Cardiovascular Cardiovascular exam: Present: RRR, +S1, +S2, systolic murmur. Absent: diastolic murmur, gallop, rubs - GI/Abdominal GI/Abdominal exam: Present: normal bowel sounds, soft, no peritoneal signs. Absent: distended, tenderness - Extremities Exam Extremities exam: Present: warm, radial pulses palpable and symetrical. Absent : calf tenderness, cyanotic, pedal edema - Neurological Exam Neurological exam: Present: CN II-XII intact, oriented X3, no focal deficits. Absent: pronater drift, facial droop, speech deficit - Skin Skin exam: Present: dry, intact - VTE Reasons for not Prescribing Prophylaxis: Treatment not Indicated - Low risk for VTE
== END 2016-09-03 17:15 | disposition home or self-care (01) ==
LOC: EMEROO 16:37 → 3BNU 16:37 → SUATTDRO 18:45 → 3BNU 19:10
PROVIDERS: ADMIT Internal Medicine; ATTEND Internal Medicine